=== PATIENT | male | born 1980 | race Caucasian/White ===

== ENCOUNTER 2018-12-19 13:46 | Emergency (ER) | payer OTHER ==
[2018-12-19] MEDS ORDERED: Ketorolac 60 MG/2 ML SDV IM ONE (14:10)
--- NOTE | 2018-12-19 14:16 | EDM.PDOC ---
ED HPI GENERAL MEDICAL PROBLEM - General Chief Complaint: Back Pain or Injury Stated Complaint: INJURED HIP TO BACK Time Seen by Provider: 12/19/18 14:00 - History of Present Illness INITIAL COMMENTS - FREE TEXT/NARRATIVE: HISTORY AND PHYSICAL: History of present illness: The patient is a 38-year-old male who says he has borderline hypertension presents with complaints to his right posterior and lateral Lower back that started on December 05 after a slip and fall while at work. The patient says he slipped and fell on that side but did not his head pass out or blackout and does not have any midline back pain but says that he has pain at the right back and hip area that is worse with standing and does not radiate down his leg. He has no neurosensory changes or weakness in his leg. He has no abdominal complaints no urinary complaints such as hematuria or dysuria and no flank pain. He says with certain movements the pain will become more sharp. He says that there is some occasional radiation of the pain but it's more with certain movements. He has no other systemic complaints such as fever chills chest pain or shortness of breath and is eating and drinking normally. He has tried some [id number] ibuprofen but nothing else for pain and nothing on a regular basis. He has not followed up with a provider since this event and he did not follow-up or see any healthcare professional after the initial event occurred for evaluation. The patient says he came in today because he feels like it is not improving and he would like evaluation Review of systems: As per history of present illness and below otherwise all systems reviewed and negative. Past medical history: As per history of present illness and as reviewed below otherwise noncontributory. Surgical history: As per history of present illness and as reviewed below otherwise noncontributory. Social history: No reported history of drug or alcohol abuse. Family history: As per history of present illness and as reviewed below otherwise noncontributory. Physical exam: General: Well-developed well-nourished mildly overweight man who is nontoxic and moves easily in the ED without distress. He ambulated into the ED without assistance and vital signs were noted by me. HEENT: Atraumatic, normocephalic, negative for conjunctival pallor or scleral icterus, mucous membranes moist, throat clear, neck supple, nontender, trachea midline. Lungs: Clear to auscultation, breath sounds equal bilaterally, chest nontender. Heart: S1S2, regular rate and rhythm no overt murmurs Abdomen: Soft, nondistended, nontender. NABS. Negative for costovertebral tenderness. Pelvis: Stable . Is some mild tenderness with palpation of the SI joint on the right as well as the posterior pelvis and lateral hip area but there is no evidence of any soft tissue injuries such as ecchymosis erythema or soft tissue swelling. Genitourinary: Deferred. Rectal: Deferred. Extremities: Atraumatic, full range of motion without defects or deficits. Neurovascular unremarkable. Neuro: Awake, alert, oriented. Cranial nerves II through XII unremarkable. Cerebellum unremarkable. Motor and sensory unremarkable throughout. Exam nonfocal. Back: There are no midline step-offs tenderness defects of the thoracic or lumbar spine and the posterior pelvis and have our as described above. There is minimal midline tenderness at the sacral area but the patient feels that it's just off to the right and not in the midline. Again there is no soft tissue injury seen. Diagnostics: Right hip x-ray with pelvis, LS spine x-rays Therapeutics: Toradol Discussed with the patient that we would do plain x-rays as they were never performed after the initial trauma and we will be somewhat limited in more evaluation as this is a more subacute injury and he would need more follow-up in the clinic for possible physical therapy and further imaging as indicated. I will do my best to help him with some of the discomfort with anti- inflammatories and muscle relaxers. I did also discuss with the patient his blood pressure here in the ED and the need for follow-up in the clinic. He states understanding Discussed with the patient the x-ray results and the need to follow-up with orthopedics due to this possible acetabular impingement that is seen on x-ray Impression: Right posterior pelvis/hip/lower back contusion subacute; r/o right acetabular impingement Definitive disposition and diagnosis as appropriate pending reevaluation and review of above. Right Back Pain Score (Numeric/FACES): 9 - Related Data Allergies Allergy/AdvReac Type Severity Reaction Status Date / Time No Known Allergies Allergy Verified 12/19/18 14:04 Home Meds: Home Meds . [No Known Home Meds] 12/19/18 [History] Past Medical History - Past Health History Medical/Surgical History: Denies Medical/Surgical History - Past Surgical History Musculoskeletal Surgical History: Reports: Carpal Tunnel Social & Family History - Family History Family Medical History: Noncontributory - Tobacco Use Smoking Status *Q: Never Smoker - Recreational Drug Use Recreational Drug Use: No ED ROS GENERAL - Review of Systems Review Of Systems: ROS reveals no pertinent complaints other than HPI. ED EXAM, GENERAL - Physical Exam Exam: See Below (See dictation) Course - Vital Signs Last Recorded V/S: Last Vital Signs Temp 35.7 C 12/19/18 14:01 Pulse 68 12/19/18 14:01 Resp 18 12/19/18 14:01 BP 152/103 H 12/19/18 14:01 Pulse Ox 96 12/19/18 14:01 - Orders/Labs/Meds Meds: Medications Discontinued Medications Generic Name Dose Route Start Last Admin Trade Name Freq PRN Reason Stop Dose Admin Ketorolac Tromethamine 60 mg 12/19/18 14:10 12/19/18 14:17 Toradol IM 12/19/18 14:11 60 mg ONETIME ONE Administration Departure - Departure Time of Disposition: 14:58 Disposition: Home, Self-Care 01 Condition: Good Clinical Impression: Back contusion Qualifiers: Encounter type: initial encounter Laterality: right Qualified Code(s): S20.221A - Contusion of right back wall of thorax, initial encounter Contusion of hip, right Qualifiers: Encounter type: initial encounter Qualified Code(s): S70.01XA - Contusion of right hip, initial encounter - Discharge Information Referrals: PCP,Not In Area [Primary Care Provider] - Forms: ED Department Discharge Additional Instructions: The following information is given to patients seen in the emergency department who are being discharged to home. This information is to outline your options for follow-up care. We provide all patients seen in our emergency department with a follow-up referral. The need for follow-up, as well as the timing and circumstances, are variable depending upon the specifics of your emergency department visit. If you don't have a primary care physician on staff, we will provide you with a referral. We always advise you to contact your personal physician following an emergency department visit to inform them of the circumstance of the visit and for follow-up with them and/or the need for any referrals to a consulting specialist. The emergency department will also refer you to a specialist when appropriate. This referral assures that you have the opportunity for followup care with a specialist. All of these measure are taken in an effort to provide you with optimal care, which includes your followup. Under all circumstances we always encourage you to contact your private physician who remains a resource for coordinating your care. When calling for followup care, please make the office aware that this follow-up is from your recent emergency room visit. If for any reason you are refused follow-up, please contact the [facility] emergency department at and ask to speak to the emergency department charge nurse. [facility] Primary care- Internal Medicine and Family [facility] [address] [place] [id number] [facility] Specialty Care--Orthopedic clinic Professional Building [address] [place] [address] [phone] Please call and schedule a follow-up appointment in our clinic not only for this back/hip pain and further reevaluation and care of this but also to review your blood pressure. Return to ER as needed as discussed. Please do all activities very slowly and take medications as prescribed and needed for pain management. He does remember that the stronger pain medication should only be taken when you're at home and not during work or when you're driving a car.
--- NOTE | 2018-12-19 14:50 | CR ---
EXAMINATION: Lumbar spine, pelvis, and right hip HISTORY: Pain COMPARISON: None TECHNIQUE: AP and lateral views of the lumbar spine, AP pelvis and 2 views of the right hip FINDINGS: Mild dextrocurvature of the thoracolumbar spine. Vertebral body heights and disc spaces appear well-maintained. Mild marginal osteophytes. SI joints are symmetric. Bone mineralization is normal. The right hip appears intact. There is persistent joint spaces. There is a mildly prominent right acetabular rim. SI joints are symmetric. The iliopectineal lines are intact. No acute osseous abnormality. IMPRESSION: 1. Mild degenerative changes within the lumbar spine without acute findings. 2. 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
== END 2018-12-19 15:08 | disposition home or self-care (01) ==
LOC: MW.ED 13:46
DX: S70.01XA Contusion of right hip, initial encounter (principal); S20.221A Contusion of right back wall of thorax, initial encounter; S30.0XXA Contusion of lower back and pelvis, initial encounter; W01.0XXA Fall on same level from slipping, tripping and stumbling without subsequent striking against object, initial encounter
CPT/HCPCS: 72100; 73502; 96372; 99283; J1885